=== PATIENT | male | born 1960 | race African-American/Black ===

== ENCOUNTER 2017-03-03 08:50 | Inpatient (IN) ==
--- NOTE | 2017-03-03 09:43 | EKG Report ---
Stationary ECG Study [facility] ER Test Date: 03/03/2017 9:03:20 AM Pat Name: JESUSITA ROMANO Department: Room: Gender: M Boom Tender: : 1960 Requested by: Benito Newberry Order Number: [id number] Reading MD: CAROL BERG Intervals [place] Rate: 96 P: 74 AL: 149 QRS: 97 QRSD: 74 T: -52 QT: 378 QTc: 432 Interpretive Statements SINUS RHYTHM RIGHT AXIS DEVIATION ST DEVIATION AND MODERATE T-WAVE ABNORMALITY, CONSIDER INFEROLATERAL ISCHEMIA Electronically Signed On 03-03-17 15:41:08 CDT by CAROL BERG [email or web address]
[2017-03-03] MEDS ORDERED: LORazepam 1 MG TABLET PO STA (10:00)
[2017-03-03] MEDS ORDERED: ALUM/MAG/SIMETH/LIDO VISC 1:1 30 ML BOTTLE PO STA (10:00)
[2017-03-03] MEDS ORDERED: MORPHINE 2 MG/1 ML SYRINGE IV STA (10:00)
[2017-03-03] MEDS ORDERED: NITROGLYCERIN 2% OINT 1 INCH/GM PACK TOP STA (10:00)
[2017-03-03] MEDS ORDERED: ONDANSETRON 4 MG/2 ML VIAL IV STA (10:00)
[2017-03-03] MEDS ORDERED: hydrALAZINE 20 MG/1 ML VIAL IV STA ×2 (10:00→11:07)
[2017-03-03] MEDS ORDERED: ASPIRIN 325 MG TABLET PO STA (10:00)
[2017-03-03 10:06] LABS: Basophils # 0.1 10*3/uL (0.0-0.2); Basophils % 0.5 % (0.0-0.8); Eosinophils % 0.3 % (0.00-10.9); Hematocrit 44.4 VOL% (42.0-52.0); Hemoglobin 15.6 GM/DL (14.0-18.0); Immature Granulocytes % 0.3 %; Immature Granulocytes Absolute 0.05 #; Lymphocytes # 2.8 10*3/uL (1.4-4.0); Mean Corpuscular HGB Conc 35.1 GM/DL (32-36); Mean Corpuscular Hemoglobin 32 PG (27-34); Mean Corpuscular Volume 91.2 FL (87-102); Mean Platelet Volume 11.3 FL (9.6-12.0); Monocytes # 1.5 10*3/uL (0.11-0.8); Monocytes % 10.3 % (1.7-12.7); Neutrophils # 10.2 10*3/uL (1.4-7.4); Neutrophils % 69.6 % (38.7-73.9); Platelet Count 298 T/CUMM (130-400); Red Blood Count 4.87 MC/CUMM (3.8-5.5); Red Cell Distribution Width 14.4 % (9.3-17.3); White Blood Count 14.6 T/CUMM (4-12)
[2017-03-03] MEDS ORDERED: NITROGLYCERIN 2% OINT 1 INCH/GM PACK TOP ONE (10:10)
[2017-03-03] MEDS ORDERED: ONDANSETRON 4 MG/2 ML VIAL ONE (10:11)
[2017-03-03] MEDS ORDERED: ASPIRIN 325 MG TABLET ONE (10:11)
[2017-03-03] MEDS ORDERED: MORPHINE 2 MG/1 ML SYRINGE ONE (10:11)
[2017-03-03] MEDS ORDERED: LORazepam 1 MG TABLET ONE (10:11)
[2017-03-03] MEDS ORDERED: hydrALAZINE 20 MG/1 ML VIAL ONE (10:11)
[2017-03-03] MEDS ORDERED: ALUM/MAG/SIMETH/LIDO VISC 1:1 30 ML BOTTLE PO ONE (10:11)
[2017-03-03 10:13] LABS: D-Dimer 1.9 MG/L FEU
[2017-03-03 10:37] LABS: Apearance,Urine Slightly Hazy (Clear); Bilirubin,Urine Negative (Negative); Blood, Urine Moderate mg/dL (Negative); Glucose,Urine (UA) Negative (Negative); Hyaline Casts,Urine 2 /LPF (0-3); Ketones,Urine 5 mg/dL (Negative); Mucus,Urine Occasional /LPF (Occasional); Nitrite,Urine Negative (Negative); Protein,Urine 100 MG/DL; RBC,Urine <1 /HPF (0-4); Urine Color Yellow (Yellow); Urine Specific Gravity 1.011 (1.001-1.035); Urine Urobilinogen < 2.0 EU/DL (0.2-1.0)
[2017-03-03 10:44] LABS: Barbiturates Screen,Urine Negative (Negative); Benzodiazepines Screen,Urine Negative (Negative); Cannabinoid Screen,Urine Negative (Negative); Opiate Screen,Urine Negative (Negative); Phencyclidine Screen,Urine Negative (Negative)
--- NOTE | 2017-03-03 10:52 | XRay Report ---
History: Chest pain Date: 03/03/2017 Study: Chest x-ray AP portable Comparison exam: February 27, 2016 The cardiomediastinal silhouette and pulmonary vasculature are unremarkable. The lungs and pleural spaces are clear. The osseous structures are unremarkable. Impression: No acute cardiopulmonary process. No significant interval change PROCEDURE INTERPRETED AT [facility] DEPARTMENT OF RADIOLOGY Final Report Signed by: Dr. Ingris Houston
--- NOTE | 2017-03-03 11:00 | Emergency Department Note ---
Cele Mina Rolonda, am scribing for, and in the presence of, Benito Campbell MD 10:19. Adrian Mina Charles R, MD, personally performed the services described in this documentation, ascribed by Alverto Oakley in my presence, and it is both accurate and complete . Arrival - Arrival Chief Complaint: Chest Pain Stated Complaint: chest pain ED Nursing Triage Note: Brought in per EMS from home with c/o mid-sternal chest pain radiating into back onset this am. Describes as sharp. +shortness of breath. +nausea. History of Schizophrenia, has been sitting in car all night, clothing wet from rain. Mode of Arrival: Stretcher Limitations: No Limitations Source: Patient, Old Records Reviewed, RN Notes Reviewed - History of Present Illness HPI Narrative: Pt is a 56 y/o male who was brought to the ED via EMS for further evaluation of chest pain with an onset of this morning. Pt has a PMHx of HTN, Asthma, COPD, and Schizophrenia. Pt confirmed that he has a house but slept in his car last night because" they were trying to kill him." He states that he does hear voices but does not have any SI. Pt has a SHx of smoking. He denies fever but confirms SOB. No other pain/compliant in ED. Onset (ago): hour(s) Consistency: constant Severity: moderate Severity scale (1-10): 4 Allergies/Adverse Reactions: Allergies Allergy/AdvReac Type Severity Reaction Status Date / Time haloperidol [From Haldol] AdvReac Cramping Verified 03/03/17 09:07 of the Muscles Penicillins AdvReac Seizure Verified 03/03/17 09:07 Home Medications: Home Medications Medication Instructions Recorded Confirmed Type Albuterol Inhaler [Proventil 2 puff INH Q4H PRN #1 inhaler 01/15/16 Rx Inhaler] Atorvastatin [Lipitor] 40 mg PO BEDTIME #30 tablet 01/15/16 Rx Losartan [Cozaar] 50 mg PO DAILY #30 tablet 01/15/16 Rx NIFEdipine [Nifedipine ER] 60 mg PO DAILY #30 tab.er.24 01/15/16 Rx Phenytoin ER Cap [Dilantin Cap] 100 mg PO TID #100 capsule 01/15/16 Rx Quetiapine Fumarate 300 mg PO BID 01/15/16 01/15/16 History Aspirin Tab 325 mg PO DAILY #0 tablet 03/01/16 Rx Review of System - Review of System Constitutional: Absent: chills, fever Head/Ears/Nose/Throat: Absent: earache Respiratory: Present: respiratory distress (SOB). Absent: cough Cardiovascular: Present: chest pain Gastrointestinal: Absent: abdominal pain, nausea, vomiting, diarrhea Musculoskeletal: Absent: arm pain, back pain, neck pain Neurological: Absent: headache Psychiatric: Present: auditory hallucinations ("hears voices"). Absent: suicidal thoughts Medical,Surgical,& Family Hx - Medical History Cardio: History of: Hypertension Psychological: History of: Bipolar Disorder, Depression, Schizophrenia Neurology: History of: Seizures Respiratory: History of: Asthma, COPD - Family History Family History: Reports;: Family Diabetes, Family Heart Disease, Family Hypertension - Social History Smoking Status: Smoker, status unknown Frequency of Alcohol Use: Unknown Type of Drug Use: Unknown Exam Vital Signs: Vital Signs Temperature 98.5 F 03/03/17 08:50 Pulse Rate 121 H 03/03/17 11:30 Respiratory Rate 18 03/03/17 11:30 Blood Pressure 132/92 03/03/17 11:30 O2 Sat by Pulse Oximetry 98 03/03/17 11:30 - General General appearance: alert, in no apparent distress - Head Head exam: Present: atraumatic, normocephalic - Eye Eye exam: Present: PERRL, EOMI, other (wide stare) - ENT ENT exam: Present: mucous membranes moist. Absent: mucous membranes dry - Neck Neck exam: Present: full ROM. Absent: tenderness - Chest Chest inspection: Present: symmetric chest wall rise. Absent: tenderness - Respiratory Respiratory exam: Present: normal lung sounds bilaterally. Absent: wheezes - Cardiovascular Cardiovascular exam: Present: normal rhythm, tachycardia - Abdominal Exam Abdominal exam: Present: soft, normal bowel sounds. Absent: tenderness - Extremities Exam Extremities exam: Present: full ROM. Absent: tenderness - Back Exam Back exam: Present: full ROM. Absent: tenderness - Neurological Exam Neurological exam: Present: alert, oriented X3, CN II-XII intact - Psychiatric Psychiatric exam: Present: normal affect, normal mood - Skin Skin exam: Present: warm, dry, intact, normal color. Absent: rash Course - Consultations Consultation #1: Hospitalist will admit patient Time: 12:28 Results - Labs CBC & BMP: 03/03/17 09:16 03/03/17 10:23 Lab Results: I have reviewed the patients labs Labs: Laboratory Tests 03/03/17 03/03/17 03/03/17 09:16 09:16 10:23 INR 1.0 PT Patient/Control Mix 11.0 D-Dimer, Quantitative 1.9 B-Natriuretic Peptide 59 Urine pH 5.0 Ur Specific [place] 1.011 Urine Protein 100 Urine Glucose (UA) Negative Urine Ketones 5 Urine Blood Moderate Urine Nitrate Negative Urine Bilirubin Negative Urine Urobilinogen < 2.0 H Urine Leukocytes Negative Urine RBC <1 Hyaline Casts 2 Urine Mucus Occasional Ur Culture Indicated? Not indicated Urine Opiates Screen Ur Barbiturates Screen Ur Phencyclidine Scrn U Amphetamine/Methamph U Benzodiazepines Scrn U Cocaine Metab Screen U Cannabinoids Screen 03/03/17 10:23 INR PT Patient/Control Mix D-Dimer, Quantitative B-Natriuretic Peptide Urine pH Ur Specific [place] Urine Protein Urine Glucose (UA) Urine Ketones Urine Blood Urine Nitrate Urine Bilirubin Urine Urobilinogen Urine Leukocytes Urine RBC Hyaline Casts Urine Mucus Ur Culture Indicated? Urine Opiates Screen Negative Ur Barbiturates Screen Negative Ur Phencyclidine Scrn Negative U Amphetamine/Methamph Negative U Benzodiazepines Scrn Negative U Cocaine Metab Screen Negative U Cannabinoids Screen Negative - Diagnostic Findings Procedure: Chest x-ray: report reviewed by me (No acute cardiopulmonary process. No significant intercal change.), CT: report reviewed by me, image reviewed by me (No evidence of pulmonary embolus) Critical Care Time Critical Care Time: Yes Total Critical Care Time: 60 Disposition Clinical Impression: Chest pain, Schizophrenia, Hypertensive urgency, Elevated troponin, Renal insufficiency Case discussed with: patient, patient's family Disposition: Still a Patient Condition: Guarded Time of Disposition: 12:28
[2017-03-03 11:20] LABS: Albumin 4.4 G/DL (3.4-5.0); Bilirubin,Total 0.7 MG/DL (0.2-1.0); Calcium 10.2 MG/DL (8.5-10.1); Magnesium 2.4 MG/DL (1.8-2.4); Osmolality,Calculated 274.7 MOS/KG (273-304); Potassium 3.2 MMOL/L (3.5-5.1); Total Protein 8.3 G/DL (6.4-8.3)
[2017-03-03 11:22] LABS: Troponin I Only 0.456 NG/ML (0.00-0.045)
--- NOTE | 2017-03-03 11:54 | CT Report ---
Exam: CT chest PE study Date: 03/03/2017 11:01 AM Indication: Chest pain shortness of breath elevated d-dimer Comparison: Routine chest Technical: Images were obtained from the thoracic inlet through the lung bases with 80 cc of Omnipaque 350 with axial and coronal imaging available for review. Dose reduction was performed with decreasing kv and mA and automated exposure. 3-D MIP images were obtained Total DLP 310.3 Findings: The thyroid gland trachea are unremarkable. Esophagus is intact.. The pulmonary outflow tract, left and right proximal pulmonary arteries, first-order, second-order and third order branches reveal no evidence of pulmonary thromboemboli. The lungs are clear without infiltrates or demonstrated with granuloma change in the right lung base. No obvious infiltrates or effusions present.. The mediastinum structures are intact. Bony structures reveal degenerative spondylosis change present. Liver hepatic and portal veins are unremarkable. The spleen is intact. The stomach is incompletely distended. The adrenal glands are unremarkable. The proximal kidneys are only faintly seen. Impression: 1. No evidence of pulmonary thromboemboli. PROCEDURE INTERPRETED AT [facility] DEPARTMENT OF RADIOLOGY Final Report Signed by: Dr. David Childs
[2017-03-03] MEDS ORDERED: ENOXAPARIN 100 MG/ML SYRINGE SUBCUT STA (12:26)
[2017-03-03] MEDS ORDERED: ACETAMINOPHEN 325 MG TABLET PO PRN (12:30)
[2017-03-03] MEDS ORDERED: ZALEPLON 5 MG CAPSULE PO PRN (12:30)
[2017-03-03] MEDS ORDERED: MAGNESIUM SULF RIDER 2 GM in PREMIX 1 EACH IV PRN (12:30)
[2017-03-03] MEDS ORDERED: BISACODYL 5 MG TABLET PO PRN (12:30)
[2017-03-03] MEDS ORDERED: ONDANSETRON 4 MG/2 ML VIAL IV PRN (12:30)
[2017-03-03] MEDS ORDERED: POTASSIUM CHLORIDE 20 MEQ TABLET PO PRN ×2 (12:30)
[2017-03-03] MEDS ORDERED: MAGNESIUM SULF RIDER 4 GM in PREMIX 1 EACH IV PRN (12:30)
[2017-03-03] MEDS ORDERED: NITROGLYCERIN SL 0.4 MG TABLET SL PRN (12:30)
[2017-03-03] MEDS ORDERED: MAGNESIUM HYDROXIDE SUSP 30 ML UDCUP PO PRN (12:30)
[2017-03-03] MEDS ORDERED: ENOXAPARIN 120 MG/0.8 ML SYRINGE SUBCUT ONE (12:42)
[2017-03-03 12:52] LABS: Risk Ratio 3.22; VLDL CHOLESTEROL 19.8 MG/DL
--- NOTE | 2017-03-03 13:00 | Hospitalist History & Physical ---
Assessment and Plan (1) Chest pain Status: Acute Assessment and plan: Initial cardiac enzymes were elevated at 0.456. We will conduct a full cardiac workup, serial cardiac enzymes, and carotid Doppler. In addition the patient was grossly hypertensive at the time of ED presentation, we will resume home medications as previously ordered. Current Visit: Yes (2) Elevated troponin Status: Acute Assessment and plan: Troponin was grossly elevated at the time of ED presentation noted at 0.456. Will obtain serial cardiac enzymes and consult cardiology for further review. Current Visit: Yes (3) Seizure disorder Status: Chronic Assessment and plan: Patient seizure disorder is generally managed with Dilantin, however the patient is not able to recall the last dose taken. We will obtain a stat Dilantin level and adjust accordingly. Current Visit: No (4) Schizophrenia Status: Acute Assessment and plan: The patient was evaluated by [facility] in the ED. Due to the increase in his troponin level and blood pressure, he was deemed inappropriate for inpatient admission at this time. Case management was involved during this process. Will reconsult case management to reach consult [facility] when patient's condition is more stable. Current Visit: Yes History of Present Illness Chief complaint: Chest pain History of present illness: This is a very pleasant 56-year-old male that presented to the ED at [facility] this afternoon via EMS for the evaluation of chest pain. Patient has a medical history significant for: Hypertension, nicotine addiction, asthma, chronic obstructive pulmonary disease, and schizophrenia. Surgical history is unknown at the time of encounter. The patient reports the onset of symptoms "7 years ago". Apparently, the patient was found sitting in his car with it. He reported that he does have a house however he slept in his car last night because "they were trying to kill him". The patient reports current auditory hallucinations however does not have any suicidal ideation at the time of encounter. At the time of ED encounter, the patient was noted to be grossly hypertensive with a blood pressure noted at 194/131. In addition, the patient verbalize complaints of shortness of breath and chest pain. Nitroglycerin ointment was applied and hydralazine was given intravenously. The patient's blood pressure gradually responded and is now noted at 132/92. Labs were obtained; complete blood count reported his white blood cell count of 14.6, hemoglobin 15.6, hematocrit 44.4, and platelet count of 298. Coagulation panel reported INR at 1.0, PT at 11, and d-dimer 1.9. Complete metabolic profile reported his sodium at 138, potassium 3.2, chloride 98,, dioxide 31, BUN 12, creatinine 1.4, calcium 10.2, magnesium 2.4, alkaline phosphatase at 120. Cardiac enzymes reported a troponin of 0.456 and BNP at 59. Urinalysis was essentially unremarkable. Urine toxicology was essentially negative also. CT chest reported no evidence of pulmonary thromboemboli. Chest x-ray was negative for the presence of any acute cardiopulmonary processes. After brief discussion with Dr. Campbell and Dr. Madsen, the patient will be admitted to the hospitalist services for continuation of care. Home medications have been reviewed. CODE STATUS discussed; patient is a FULL CODE. Home Medications Medication Instructions Recorded Confirmed Type Albuterol Inhaler [Proventil 2 puff INH Q4H PRN #1 inhaler 01/15/16 Rx Inhaler] Atorvastatin [Lipitor] 40 mg PO BEDTIME #30 tablet 01/15/16 Rx Losartan [Cozaar] 50 mg PO DAILY #30 tablet 01/15/16 Rx NIFEdipine [Nifedipine ER] 60 mg PO DAILY #30 tab.er.24 01/15/16 Rx Phenytoin ER Cap [Dilantin Cap] 100 mg PO TID #100 capsule 01/15/16 Rx Quetiapine Fumarate 300 mg PO BID 01/15/16 01/15/16 History Aspirin Tab 325 mg PO DAILY #0 tablet 03/01/16 Rx Allergies Allergy/AdvReac Type Severity Reaction Status Date / Time haloperidol [From Haldol] AdvReac Cramping Verified 03/03/17 09:07 of the Muscles Penicillins AdvReac Seizure Verified 03/03/17 09:07 Medical,Surgical,& Family Hx - Medical History Cardio: History of: Hypertension Psychological: History of: Bipolar Disorder, Depression, Schizophrenia Neurology: History of: Seizures Respiratory: History of: Asthma, COPD - Family History Family History: Reports;: Family Diabetes, Family Heart Disease, Family Hypertension - Social History Smoking Status: Smoker, status unknown Frequency of Alcohol Use: Unknown Type of Drug Use: Unknown ROS unobtainable: due to mental status Exam - Constitutional Vitals: Period Temp Pulse Resp BP Sys/Celaya Pulse Ox Last 24 Hr 98.5 F-98.5 F 93-121 18-22 132-212/92-131 96-100 General appearance: normal weight, no acute distress - Head Head exam: Present: normal inspection, normocephalic, atraumatic - Eye Eye exam: Present: EOMI. Absent: conjunctival injection Pupils: Present: DAYNA, normal accommodation - ENT ENT exam: Present: normal exam, normal external ear exam, normal oropharynx - Neck Neck exam: Present: normal inspection. Absent: lymphadenopathy, meningismus, tenderness, thyromegaly - Respiratory Respiratory exam: Present: wheezes. Absent: accessory muscle use, chest wall tenderness, decreased breath sounds, prolonged expiratory phase - Cardiovascular Cardiovascular exam: Present: tachycardia. Absent: carotid bruit, diastolic murmur, gallop, JVD, rubs - GI/Abdominal GI/Abdominal exam: Present: normal bowel sounds, soft - Extremities Exam Extremities exam: Present: normal inspection, full ROM, edema - Back Exam Back exam: Present: normal inspection - Neurological Exam Neurological exam: Present: alert, altered - Psychiatric Psychiatric exam: Present: flat affect - Skin Skin exam: Present: normal color, warm, dry Results - Labs CBC & BMP: 03/03/17 09:16 03/03/17 10:23 Lab Results: I have reviewed the past 24 hour labs
[2017-03-03] MEDS ORDERED: POTASSIUM CHLORIDE 20 MEQ TABLET PO ONE (13:44)
--- NOTE | 2017-03-03 14:52 | EKG Report ---
Stationary ECG Study [facility] ER Test Date: 03/03/2017 1:10:09 PM Pat Name: JESUSITA ROMANO Department: Room: 286 Gender: M Automat Watcher: : 1960 Requested by: Benito Newberry Order Number: [id number] Reading MD: CAROL BERG Intervals [place] Rate: 125 P: 146 PA: 134 QRS: 139 QRSD: 78 T: -30 QT: 317 QTc: 391 Interpretive Statements ECTOPIC ATRIAL TACHYCARDIA LEFT POSTERIOR FASCICULAR BLOCK NONSPECIFIC T-WAVE ABNORMALITY Electronically Signed On 03-03-17 15:47:04 CDT by CAROL BERG [email or web address]
--- NOTE | 2017-03-03 15:08 | ECHO Report ---
Neeta Lezama Exam Date: 03/03/2017 12:48 Referring Physician: Technologist: Conchis Barry Age: 56 Ht (in): 71 Wt (lb): 235 Gender: M Exam Location: [facility] Echo Indications: sinus tachycardia, chest pain, sob, HTN, asthma, COPD BP: 145 / 95 HR: 54 Rhythm: Sinus tachycardia Technical Quality: IMPRESSIONS Hyperdynamic Left ventricle. EF 65-70 %. Grade I/IV diastolic dysfunction (abnormal relaxation filling pattern), normal to mildly elevated filling pressures. Normal right ventricle size. Normal right atrial size. Normal left atrial size. Mildly thickened mitral valve. Trace mitral valve regurgitation. Aortic valve sclerosis. No aortic valve regurgitation. Morphologically normal tricuspid valve. Mild tricuspid valve regurgitation. PAP40 mmHG. Pulmonic valve not well visualized. No pericardial effusion. Normal size aortic root and proximal ascending aorta. LVOT gradient 36 mmHg due hyperdynamic ventricle. MEASUREMENTS (Male / Female) Normal Values 2D ECHO LV Diastolic Diameter PLAX 2.7 cm 4.2 - 5.9 / 3.9 - 5.3 cm LV Systolic Diameter PLAX 1.3 cm LV Fractional Shortening PLAX 50.4 % IVS Diastolic Thickness 1.7 cm 0.6 - 1.0 / 0.6 - 0.9 cm LVPW Diastolic Thickness 1.4 cm 0.6 - 1.0 / 0.6 - 0.9 cm RV Internal Dim ED PLAX 2.4 cm Aortic Root Diameter 2.6 cm LA Systolic Diameter LX 3.5 cm 3.0 - 4.0 / 2.7 - 3.8 cm DOPPLER TR Peak Velocity 299.0 cm/s TR Peak Gradient 35.8 mmHg FINDINGS Left Ventricle Hyperdynamic Left ventricle. EF 65-70 %. Grade I/IV diastolic dysfunction (abnormal relaxation filling pattern), normal to mildly elevated filling pressures. Right Ventricle Normal right ventricular size. Right Atrium Normal right atrial size. Left Atrium Normal left atrial size. Mitral Valve Mildly thickened mitral valve. Trace mitral valve regurgitation. Aortic Valve Aortic valve sclerosis. No aortic valve regurgitation. Tricuspid Valve Morphologically normal tricuspid valve. Mild tricuspid valve regurgitation.PAP40 mmHG. Pulmonic Valve Pulmonic valve not well visualized. Pericardium No pericardial effusion. Aorta Normal size aortic root and proximal ascending aorta. Santana Cass (Electronically Signed) Final Date: 03 March 2017 15:07
[2017-03-03] MEDS ORDERED: ALBUTEROL/IPRATROPIUM 3 ML NEB RESP TX PRN (15:12)
[2017-03-03] MEDS: SODIUM CHLORIDE 0.45% 1,000 ML IV SCH (15:17)
[2017-03-03] MEDS: PHENYTOIN ER 100 MG CAPSULE PO SCH ×2 (15:17→21:02)
--- NOTE | 2017-03-03 15:19 | Cardiology Consult Note ---
<Leilani Kohler E - Last Filed: 03/03/17 14:47> Assessment and Plan - Time spent with patient Time spent with patient: Greater than 30 minutes (due to assessment, plan, and documentation) (1) Chest pain Status: Acute Assessment and plan: See plan of care listed below. Current Visit: Yes (2) Hypertension Status: Chronic Assessment and plan: See plan of care listed below. Current Visit: No Qualifiers: Hypertension type: essential hypertension Qualified Code(s): I10 - Essential (primary) hypertension (3) COPD (chronic obstructive pulmonary disease) Status: Chronic Assessment and plan: See plan of care listed below. Current Visit: Yes (4) Seizure disorder Status: Chronic Assessment and plan: See plan of care listed below. Current Visit: No (5) Schizophrenia Status: Chronic Assessment and plan: See plan of care listed below. Current Visit: Yes (6) Asthma Status: Chronic Assessment and plan: See plan of care listed below. Current Visit: No (7) Nicotine addiction Status: Chronic Assessment and plan: See plan of care listed below. Current Visit: Yes History of Present Illness - Data of Consult Patient: new to practice Consult date: 03/03/17 Requesting Physician: Maurice Huston - Consult Narrative Reason for consult: chest pain History of present illness: Job Site Superintendent: ramakrishna Odell PCP: unable to obtain Due to the patient's mental status, obtaining a history is difficult. Much of the history is obtained from the record. Mr. Lezama is a 56 year old male with a past medical history of hypertension, nicotine addiction, asthma, chronic obstructive pulmonary disease, seizure disorder, and schizophrenia. Unable to obtain complete review of systems as the patient replied "yes" to every symptom asked. He reportedly lives alone and there is currently no family present. Mr. Lezama presented to the emergency department today for further evaluation of chest pain. Apparently, he was found sitting outside in his car and reports an onset of the symptoms "7 years ago." He reportedly has a home but slept in his car last night because "they were trying to kill him." He is currently having auditory hallucinations but denies suicidal ideation. At the time of my exam, he tells me the voices are telling him "stop the violence." From what I'm able to ascertain, the patient is/has been having midsternal chest pain and shortness of breath. On admission, he does have a slight bump in his troponin of up to 0.456 in the setting of a mildly elevated creatinine of 1.4. EKG does show sinus rhythm with T-wave abnormality inferolaterally. Echocardiogram is pending. Potassium is 3.2 on admission. Magnesium 2.4. Lipid panel reveals triglycerides 99, cholesterol 174, LDL 106, and HDL 54. BNP is 59. Urine drug screen is negative. Dilantin level is 2.9. Assessment/Plan: 1. Chest pain - Difficult to determine whether this is typical or atypical. We will follow his serial EKGs and cardiac biomarkers. Unsure of his functional status. He may require further evaluation with stress testing or left heart catheterization; however, given his mental state, he would not be the best candidate for PCI since it would require him to be compliant with DAPT. 2. Hypertension - Suspect uncontrolled. His home medications have been resumed. We will continue to monitor and adjust accordingly. 3. COPD - O2 PRN. Breathing treatments PRN. 4. Seizure disorder - Dilantin has been resumed. Unsure of any recent seizure activity. 5. Schizophrenia - Psych medications have been resumed. 6. Asthma - Continue O2 PRN. 7. Nicotine addiction - Spent greater than 5 minutes discussing the need for total tobacco cessation. Unsure how much patient smokes or for how long. Will need re-education. CC: Patti Madsen MD - Home Medications and Allergies Home Medications: Home Medications Medication Instructions Recorded Confirmed Type Unable To Obtain [Unable to Obtain] 03/03/17 03/03/17 History Allergies/Adverse Reactions: Allergies Allergy/AdvReac Type Severity Reaction Status Date / Time haloperidol [From Haldol] AdvReac Cramping Verified 03/03/17 09:07 of the Muscles Penicillins AdvReac Seizure Verified 03/03/17 09:07 ROS unobtainable: due to mental status Medical,Surgical,& Family Hx - Medical History Cardio: History of: Hypertension Psychological: History of: Bipolar Disorder, Depression, Schizophrenia Neurology: History of: Seizures Respiratory: History of: Asthma, COPD - Family History Family History: Reports;: Family Diabetes, Family Heart Disease, Family Hypertension - Social History Smoking Status: Current every day smoker Frequency of Alcohol Use: Frequently (amount unknown) Type of Drug Use: Unknown Marital Status: Single Lives With:: Alone Functional capacity: independent ambulation Physical Examination Vital Signs Temp Pulse Resp BP Pulse Ox 98.5 F 102 H 22 175/116 100 03/03/17 08:50 03/03/17 08:50 03/03/17 08:50 03/03/17 08:50 03/03/17 08:50 Exam: General appearance: Overweight, no acute distress. - Head Head exam: Present: normal inspection, normocephalic, atraumatic. Absent: hematoma, laceration - Eye Eye exam: Present: EOMI. Absent: nystagmus, periorbital swelling, laceration to eyelids Pupils: Present: PERRL. Absent: constricted, dilated, fixed, irregular, unequal - ENT ENT exam: Present: normal exam, normal external ear exam - Neck Neck exam: Present: normal inspection. Absent: lymphadenopathy, meningismus, tenderness, thyromegaly - Respiratory Respiratory exam: Present: clear to auscultation bilaterally. Absent: accessory muscle use, chest wall tenderness - Cardiovascular Cardiovascular exam: Present: regular rate and rhythm, tachycardia. Absent: carotid bruit, JVD, rubs - GI/Abdominal GI/Abdominal exam: Present: normal bowel sounds, soft. Absent: distended, firm , guarding, hernia, mass, tenderness, rebound. - Extremities Exam Extremities exam: Present: normal inspection, normal capillary refill. Upper extremity pulses 2+. Lower extremity pulses 2+. Absent: calf tenderness, edema -Musculoskeletal Exam Musculoskeletal: Present: No Fluid Collection, No Pain, Normal Range of Motion - Back Exam Back exam: Present: normal inspection. Absent: muscle spasm, vertebral tenderness - Neurological Exam Neurological exam: Present: alert, confused, grossly intact without resting or essential tremor - Psychiatric Psychiatric exam: Present: flat affect - Skin Skin exam: Present: normal color, warm, dry, intact. Absent: cyanosis, diaphoretic, rash, urticaria Result/EKG - Labs CBC & BMP: 03/03/17 09:16 03/03/17 10:23 Lab Results: I have reviewed the past 24 hour labs Labs: Laboratory Results - last 24 hr 03/03/17 03/03/17 03/03/17 09:16 09:16 09:16 WBC 14.6 H RBC 4.87 Hgb 15.6 Hct 44.4 MCV 91.2 MCH 32 MCHC 35.1 RDW 14.4 Plt Count 298 MPV 11.3 Neut % (Auto) 69.6 Lymph % (Auto) 19.0 L [place] % (Auto) 10.3 Eos % (Auto) 0.3 Baso % (Auto) 0.5 Neut # (Auto) 10.2 H Lymph # (Auto) 2.8 [place] # (Auto) 1.5 H Eos # (Auto) 0.0 Baso # (Auto) 0.1 Immature Gran % 0.3 Nucleated RBC % 0.0 Immature Gran # 0.05 Nucleated RBCs # 0.00 INR 1.0 PT Patient/Control Mix 11.0 D-Dimer, Quantitative 1.9 Sodium Potassium Chloride Carbon Dioxide Anion Gap BUN Creatinine GFR Calculation BUN/Creatinine Ratio Glucose Calculated Osmolality Calcium Magnesium Total Bilirubin AST ALT Alkaline Phosphatase Troponin I B-Natriuretic Peptide 59 Total Protein Albumin Globulin Albumin/Globulin Ratio Triglycerides Cholesterol LDL Cholesterol VLDL Cholesterol HDL Cholesterol Heart Disease Risk Ratio Lipase Urine Color Urine Appearance Urine pH Ur Specific [place] Urine Protein Urine Glucose (UA) Urine Ketones Urine Blood Urine Nitrate Urine Bilirubin Urine Urobilinogen Urine Leukocytes Urine RBC Hyaline Casts Urine Mucus Ur Culture Indicated? Urine Opiates Screen Ur Barbiturates Screen Phenytoin Ur Phencyclidine Scrn U Amphetamine/Methamph U Benzodiazepines Scrn U Cocaine Metab Screen U Cannabinoids Screen 03/03/17 03/03/17 03/03/17 10:23 10:23 10:23 WBC RBC Hgb Hct MCV MCH MCHC RDW Plt Count MPV Neut % (Auto) Lymph % (Auto) [place] % (Auto) Eos % (Auto) Baso % (Auto) Neut # (Auto) Lymph # (Auto) [place] # (Auto) Eos # (Auto) Baso # (Auto) Immature Gran % Nucleated RBC % Immature Gran # Nucleated RBCs # INR PT Patient/Control Mix D-Dimer, Quantitative Sodium 138 Potassium 3.2 L Chloride 98 Carbon Dioxide 31 Anion Gap 12.2 BUN 12 Creatinine 1.40 H GFR Calculation 86 BUN/Creatinine Ratio 8.00 Glucose 105 Calculated Osmolality 274.7 Calcium 10.2 H Magnesium 2.4 Total Bilirubin 0.70 AST 34 ALT 26 Alkaline Phosphatase 120 H Troponin I 0.456 H B-Natriuretic Peptide Total Protein 8.3 Albumin 4.4 Globulin 3.9 H Albumin/Globulin Ratio 1.1 Triglycerides Cholesterol LDL Cholesterol VLDL Cholesterol HDL Cholesterol Heart Disease Risk Ratio Lipase 112.0 Urine Color Yellow Urine Appearance Slightly hazy Urine pH 5.0 Ur Specific [place] 1.011 Urine Protein 100 Urine Glucose (UA) Negative Urine Ketones 5 Urine Blood Moderate Urine Nitrate Negative Urine Bilirubin Negative Urine Urobilinogen < 2.0 H Urine Leukocytes Negative Urine RBC <1 Hyaline Casts 2 Urine Mucus Occasional Ur Culture Indicated? Not indicated Urine Opiates Screen Negative Ur Barbiturates Screen Negative Phenytoin Ur Phencyclidine Scrn Negative U Amphetamine/Methamph Negative U Benzodiazepines Scrn Negative U Cocaine Metab Screen Negative U Cannabinoids Screen Negative 03/03/17 03/03/17 10:23 10:23 WBC RBC Hgb Hct MCV MCH MCHC RDW Plt Count MPV Neut % (Auto) Lymph % (Auto) [place] % (Auto) Eos % (Auto) Baso % (Auto) Neut # (Auto) Lymph # (Auto) [place] # (Auto) Eos # (Auto) Baso # (Auto) Immature Gran % Nucleated RBC % Immature Gran # Nucleated RBCs # INR PT Patient/Control Mix D-Dimer, Quantitative Sodium Potassium Chloride Carbon Dioxide Anion Gap BUN Creatinine GFR Calculation BUN/Creatinine Ratio Glucose Calculated Osmolality Calcium Magnesium Total Bilirubin AST ALT Alkaline Phosphatase Troponin I B-Natriuretic Peptide Total Protein Albumin Globulin Albumin/Globulin Ratio Triglycerides 99 Cholesterol 174 LDL Cholesterol 106.0 VLDL Cholesterol 19.8 HDL Cholesterol 54 Heart Disease Risk Ratio 3.22 Lipase Urine Color Urine Appearance Urine pH Ur Specific [place] Urine Protein Urine Glucose (UA) Urine Ketones Urine Blood Urine Nitrate Urine Bilirubin Urine Urobilinogen Urine Leukocytes Urine RBC Hyaline Casts Urine Mucus Ur Culture Indicated? Urine Opiates Screen Ur Barbiturates Screen Phenytoin 2.9 L Ur Phencyclidine Scrn U Amphetamine/Methamph U Benzodiazepines Scrn U Cocaine Metab Screen U Cannabinoids Screen - EKG EKG results: interpreted by me, sinus rhythm (with T-wave abormality inferolaterally) <Mikey Odell - Last Filed: 03/03/17 16:53> History of Present Illness - Consult Narrative History of present illness: Cardiology addendum Patient seen and chart examined ,discussed with nurse Leilani Kohler NP. This patient has schizophrenia. I am not sure that his history is reliable. Patient states he is out on the streets again. He admits to being noncompliant with his medication. Urine drug screen was negative. He does smoke at least one pack of cigarettes daily. CT the chest was negative for pulmonary embolus and dissection. EKG shows sinus rhythm with right axis deviation and inferolateral T-wave inversions. Patient admitted with hypertensive urgency blood pressure 212/126 with abnormal EKG and trivial troponin Also has seizure disorder on Dilantin Plan Restart BP meds Echo Doppler Lexiscan cardiac stress test in a.m. No family is present at this time CC: Patti Madsen MD Physical Examination Vital Signs Temp Pulse Resp BP Pulse Ox 98.5 F 102 H 22 175/116 100 03/03/17 08:50 03/03/17 08:50 03/03/17 08:50 03/03/17 08:50 03/03/17 08:50 Result/EKG - Labs CBC & BMP: 03/03/17 09:16 03/03/17 10:23 Labs: Laboratory Results - last 24 hr 03/03/17 03/03/17 03/03/17 09:16 09:16 09:16 WBC 14.6 H RBC 4.87 Hgb 15.6 Hct 44.4 MCV 91.2 MCH 32 MCHC 35.1 RDW 14.4 Plt Count 298 MPV 11.3 Neut % (Auto) 69.6 Lymph % (Auto) 19.0 L [place] % (Auto) 10.3 Eos % (Auto) 0.3 Baso % (Auto) 0.5 Neut # (Auto) 10.2 H Lymph # (Auto) 2.8 [place] # (Auto) 1.5 H Eos # (Auto) 0.0 Baso # (Auto) 0.1 Immature Gran % 0.3 Nucleated RBC % 0.0 Immature Gran # 0.05 Nucleated RBCs # 0.00 INR 1.0 PT Patient/Control Mix 11.0 D-Dimer, Quantitative 1.9 Sodium Potassium Chloride Carbon Dioxide Anion Gap BUN Creatinine GFR Calculation BUN/Creatinine Ratio Glucose Calculated Osmolality Calcium Magnesium Total Bilirubin AST ALT Alkaline Phosphatase Total Creatine Kinase CK-MB (CK-2) CK and CKMB Interp Troponin I B-Natriuretic Peptide 59 Total Protein Albumin Globulin Albumin/Globulin Ratio Triglycerides Cholesterol LDL Cholesterol VLDL Cholesterol HDL Cholesterol Heart Disease Risk Ratio Lipase Urine Color Urine Appearance Urine pH Ur Specific [place] Urine Protein Urine Glucose (UA) Urine Ketones Urine Blood Urine Nitrate Urine Bilirubin Urine Urobilinogen Urine Leukocytes Urine RBC Hyaline Casts Urine Mucus Ur Culture Indicated? Urine Opiates Screen Ur Barbiturates Screen Phenytoin Ur Phencyclidine Scrn U Amphetamine/Methamph U Benzodiazepines Scrn U Cocaine Metab Screen U Cannabinoids Screen 03/03/17 03/03/17 03/03/17 10:23 10:23 10:23 WBC RBC Hgb Hct MCV MCH MCHC RDW Plt Count MPV Neut % (Auto) Lymph % (Auto) [place] % (Auto) Eos % (Auto) Baso % (Auto) Neut # (Auto) Lymph # (Auto) [place] # (Auto) Eos # (Auto) Baso # (Auto) Immature Gran % Nucleated RBC % Immature Gran # Nucleated RBCs # INR PT Patient/Control Mix D-Dimer, Quantitative Sodium 138 Potassium 3.2 L Chloride 98 Carbon Dioxide 31 Anion Gap 12.2 BUN 12 Creatinine 1.40 H GFR Calculation 86 BUN/Creatinine Ratio 8.00 Glucose 105 Calculated Osmolality 274.7 Calcium 10.2 H Magnesium 2.4 Total Bilirubin 0.70 AST 34 ALT 26 Alkaline Phosphatase 120 H Total Creatine Kinase CK-MB (CK-2) CK and CKMB Interp Troponin I 0.456 H B-Natriuretic Peptide Total Protein 8.3 Albumin 4.4 Globulin 3.9 H Albumin/Globulin Ratio 1.1 Triglycerides Cholesterol LDL Cholesterol VLDL Cholesterol HDL Cholesterol Heart Disease Risk Ratio Lipase 112.0 Urine Color Yellow Urine Appearance Slightly hazy Urine pH 5.0 Ur Specific [place] 1.011 Urine Protein 100 Urine Glucose (UA) Negative Urine Ketones 5 Urine Blood Moderate Urine Nitrate Negative Urine Bilirubin Negative Urine Urobilinogen < 2.0 H Urine Leukocytes Negative Urine RBC <1 Hyaline Casts 2 Urine Mucus Occasional Ur Culture Indicated? Not indicated Urine Opiates Screen Negative Ur Barbiturates Screen Negative Phenytoin Ur Phencyclidine Scrn Negative U Amphetamine/Methamph Negative U Benzodiazepines Scrn Negative U Cocaine Metab Screen Negative U Cannabinoids Screen Negative 03/03/17 03/03/17 03/03/17 10:23 10:23 14:26 WBC RBC Hgb Hct MCV MCH MCHC RDW Plt Count MPV Neut % (Auto) Lymph % (Auto) [place] % (Auto) Eos % (Auto) Baso % (Auto) Neut # (Auto) Lymph # (Auto) [place] # (Auto) Eos # (Auto) Baso # (Auto) Immature Gran % Nucleated RBC % Immature Gran # Nucleated RBCs # INR PT Patient/Control Mix D-Dimer, Quantitative Sodium Potassium Chloride Carbon Dioxide Anion Gap BUN Creatinine GFR Calculation BUN/Creatinine Ratio Glucose Calculated Osmolality Calcium Magnesium Total Bilirubin AST ALT Alkaline Phosphatase Total Creatine Kinase 1065 H CK-MB (CK-2) 5.6 H CK and CKMB Interp 0.5 Troponin I 0.446 H B-Natriuretic Peptide Total Protein Albumin Globulin Albumin/Globulin Ratio Triglycerides 99 Cholesterol 174 LDL Cholesterol 106.0 VLDL Cholesterol 19.8 HDL Cholesterol 54 Heart Disease Risk Ratio 3.22 Lipase Urine Color Urine Appearance Urine pH Ur Specific [place] Urine Protein Urine Glucose (UA) Urine Ketones Urine Blood Urine Nitrate Urine Bilirubin Urine Urobilinogen Urine Leukocytes Urine RBC Hyaline Casts Urine Mucus Ur Culture Indicated? Urine Opiates Screen Ur Barbiturates Screen Phenytoin 2.9 L Ur Phencyclidine Scrn U Amphetamine/Methamph U Benzodiazepines Scrn U Cocaine Metab Screen U Cannabinoids Screen
[2017-03-03 15:20] LABS: CKMB % 0.5 %
[2017-03-03 15:21] LABS: Troponin I Only 0.446 NG/ML (0.00-0.045)
[2017-03-03] MEDS ORDERED: CARVEDILOL 6.25 MG TABLET PO SCH (21:00)
[2017-03-03] MEDS: ATORVASTATIN 40 MG TABLET PO SCH (21:02)
[2017-03-03] MEDS: QUEtiapine 100 MG TABLET PO SCH (21:02)
[2017-03-04 02:58] LABS: Basophils # 0.1 10*3/uL (0.0-0.2); Basophils % 0.6 % (0.0-0.8); Eosinophils # 0.2 10*3/uL (0.0-0.87); Eosinophils % 1.7 % (0.00-10.9); Hematocrit 41.1 VOL% (42.0-52.0); Hemoglobin 14.3 GM/DL (14.0-18.0); Immature Granulocytes % 0.2 %; Immature Granulocytes Absolute 0.03 #; Lymphocytes # 2.7 10*3/uL (1.4-4.0); Lymphocytes % 22.3 % (21.2-54.2); Mean Corpuscular HGB Conc 34.8 GM/DL (32-36); Mean Corpuscular Hemoglobin 32 PG (27-34); Mean Corpuscular Volume 92.4 FL (87-102); Mean Platelet Volume 10.6 FL (9.6-12.0); Monocytes % 8.4 % (1.7-12.7); Neutrophils # 8.1 10*3/uL (1.4-7.4); Neutrophils % 66.8 % (38.7-73.9); Platelet Count 225 T/CUMM (130-400); Red Blood Count 4.45 MC/CUMM (3.8-5.5); Red Cell Distribution Width 14.5 % (9.3-17.3); White Blood Count 12.1 T/CUMM (4-12)
[2017-03-04 03:27] LABS: Albumin 3.5 G/DL (3.4-5.0); Bilirubin,Total 0.5 MG/DL (0.2-1.0); Calcium 9.2 MG/DL (8.5-10.1); Magnesium 2.5 MG/DL (1.8-2.4); Osmolality,Calculated 274.8 MOS/KG (273-304); Potassium 3.4 MMOL/L (3.5-5.1); Total Protein 6.9 G/DL (6.4-8.3)
[2017-03-04 03:31] LABS: Troponin I Only 0.189 NG/ML (0.00-0.045)
[2017-03-04] MEDS: SODIUM CHLORIDE 0.45% 1,000 ML IV SCH ×2 (05:28→14:14)
--- NOTE | 2017-03-04 06:18 | EKG Report ---
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
--- NOTE | 2017-03-04 06:41 | Physician Query Form ---
CLICK EDIT DOCUMENT TO SELECT QUERY ANSWER --> OK --> SIGN Iris Palacios RN, CCDS Certified Clinical Residential Property Tax Appraiser W) [phone] (f) [phone] [email or web address] PROVIDERS: Make your selection(s) from the choices in EACH section by typing an "x" and enter comments in the comment section. Please use your independent medical judgment in providing your response. This request does not imply that any particular answer is desired or expected. CLINICAL INDICATORS: (Providers should not edit this section) The medical record indicates that the patient was admitted with chest pain, hypertension, 175/115, troponins of 0.456 that has dropped to 0.189 and the patient was treated with "Nitroglycerin ointment was applied and hydralazine was given intravenously". After necessary workup, could you please state the underlying cause of the patient's chest pain, if determined. CARDIAC ETIOLOGY: ( ) Angina associated with coronary artery disease ( ) Unstable Angina ( ) Demand ischemia without an acute NM ( ) Demand ischemia with a NSTEMI ( ) STEMI ( ) NSTEMI ( ) Cardiac Arrhythmia, please specify: ( ) Armond's Syndrome ( ) Other etiology, please specify: ( ) Clinically unable to determine NON-CARDIAC ETIOLOGY: ( ) GERD ( ) Chest pain due to Hypertension (x) Anterior chest wall pain ( ) Pleuritic pain ( ) Costochondritis ( ) Anxiety ( ) Musculoskeletal, please provide site: ( ) Troponin elevation due to non-cardiac cause, please specify: ( ) Other etiology, please specify: ( ) Clinically unable to determine COMMENTS: PLEASE ALSO DOCUMENT RESPONSE IN PROGRESS NOTES AND/OR DISCHARGE SUMMARY Use of terms such as suspected, likely, or probable (associated with a specific diagnosis that is being evaluated, monitored, or treated as if it exists) are acceptable and can be restated in the discharge summary if not ruled out. MTDD
[2017-03-04] MEDS ORDERED: ASPIRIN EC 325 MG TABLET PO SCH (09:00)
[2017-03-04] MEDS ORDERED: PANTOPRAZOLE 40 MG TABLET PO SCH (09:00)
[2017-03-04] MEDS ORDERED: LISINOPRIL 5 MG TABLET PO SCH (09:00)
--- NOTE | 2017-03-04 09:24 | Event Note ---
Patient underwent Lexiscan Cardiolite stress testing this morning due to gait instability. Dr. Odell present for Lexiscan. Maximum heart rate 123. Patient had no significant EKG changes during test. Patient had mild dyspnea and nausea but no vomiting. Denies chest pain, dizziness, lightheadedness, syncope. Patient now to nuclear medicine for final scan. Dr. Odell to read, interpret, and advise.
--- NOTE | 2017-03-04 09:29 | Cardiology Progress Note ---
<Leilani Kohler E - Last Filed: 03/04/17 09:24> Assessment and Plan - Time spent with patient Time spent with patient: Less than 30 minutes (1) Chest pain Status: Acute Assessment and plan: See plan of care listed below. Current Visit: Yes (2) Hypertension Status: Chronic Assessment and plan: See plan of care listed below. Current Visit: No Qualifiers: Hypertension type: essential hypertension Qualified Code(s): I10 - Essential (primary) hypertension (3) COPD (chronic obstructive pulmonary disease) Status: Chronic Assessment and plan: See plan of care listed below. Current Visit: Yes (4) Seizure disorder Status: Chronic Assessment and plan: See plan of care listed below. Current Visit: No (5) Schizophrenia Status: Chronic Assessment and plan: See plan of care listed below. Current Visit: Yes (6) Asthma Status: Chronic Assessment and plan: See plan of care listed below. Current Visit: No (7) Nicotine addiction Status: Chronic Assessment and plan: See plan of care listed below. Current Visit: Yes Cardiology - PN: Subj Interval history: Surgery Teacher: new to Dr. Odell PCP: unable to obtain Mr. Lezama is a 56-year-old -[place] male who is admitted for further evaluation of chest pain. He has a history of hypertension, nicotine addiction , asthma, chronic obstructive pulmonary disease, seizure disorder, and schizophrenia. Due to the patient's mental status, is difficult to obtain much information. He has been having auditory hallucinations since admission but denies suicidal ideation. He did have slight bump in his troponin in the setting of a mildly elevated creatinine and hypertensive urgency with blood pressure 212/126. EKG shows sinus rhythm with right axis deviation and inferolateral T-wave inversions. CT of the chest was negative for PE and dissection. Urine drug screen was negative. Echocardiogram is pending. This morning he underwent Lexiscan Cardiolite stress testing without incident. He is now in nuclear medicine for his final scan. We will await these results. He is having no chest pain this morning. Blood pressure is much better controlled today. Assessment/Plan: 1. Chest pain - Difficult to determine whether this is typical or atypical. Given his mental state, he would not be the best candidate for PCI since it would require him to be compliant with DAPT. He underwent nuclear stress testing this morning. We will await these results. 2. Hypertension - Suspect uncontrolled. His home medications have been resumed. We will continue to monitor and adjust accordingly. 3. COPD - O2 PRN. Breathing treatments PRN. 4. Seizure disorder - Dilantin has been resumed. Unsure of any recent seizure activity. 5. Schizophrenia - Psych medications have been resumed. 6. Asthma - Continue O2 PRN. 7. Nicotine addiction - Spent greater than 5 minutes discussing the need for total tobacco cessation. Unsure how much patient smokes or for how long. Will need re-education. Exam (Progress Note) - Constitutional Vitals: Period Temp Pulse Resp BP Sys/Celaya Pulse Ox Last 24 Hr 97.1 F-99.1 F 93-129 16-20 120-212/65-131 90-99 Exam: General appearance: Overweight, no acute distress. - Head Head exam: Present: normal inspection, normocephalic, atraumatic. Absent: hematoma, laceration - Eye Eye exam: Present: EOMI. Absent: nystagmus, periorbital swelling, laceration to eyelids Pupils: Present: PERRL. Absent: constricted, dilated, fixed, irregular, unequal - ENT ENT exam: Present: normal exam, normal external ear exam - Neck Neck exam: Present: normal inspection. Absent: lymphadenopathy, meningismus, tenderness, thyromegaly - Respiratory Respiratory exam: Present: clear to auscultation bilaterally. Absent: accessory muscle use, chest wall tenderness - Cardiovascular Cardiovascular exam: Present: regular rate and rhythm, tachycardia. Absent: carotid bruit, JVD, rubs - GI/Abdominal GI/Abdominal exam: Present: normal bowel sounds, soft. Absent: distended, firm , guarding, hernia, mass, tenderness, rebound. - Extremities Exam Extremities exam: Present: normal inspection, normal capillary refill. Upper extremity pulses 2+. Lower extremity pulses 2+. Absent: calf tenderness, edema -Musculoskeletal Exam Musculoskeletal: Present: No Fluid Collection, No Pain, Normal Range of Motion - Back Exam Back exam: Present: normal inspection. Absent: muscle spasm, vertebral tenderness - Neurological Exam Neurological exam: Present: alert, confused, grossly intact without resting or essential tremor - Psychiatric Psychiatric exam: Present: flat affect - Skin Skin exam: Present: normal color, warm, dry, intact. Absent: cyanosis, diaphoretic, rash, urticaria Result/EKG - Labs CBC & BMP: 03/04/17 02:52 03/04/17 02:52 Lab Results: I have reviewed the past 24 hour labs Labs: Laboratory Results - last 24 hr 03/03/17 03/03/17 03/03/17 09:16 09:16 09:16 WBC 14.6 H RBC 4.87 Hgb 15.6 Hct 44.4 MCV 91.2 MCH 32 MCHC 35.1 RDW 14.4 Plt Count 298 MPV 11.3 Neut % (Auto) 69.6 Lymph % (Auto) 19.0 L [place] % (Auto) 10.3 Eos % (Auto) 0.3 Baso % (Auto) 0.5 Neut # (Auto) 10.2 H Lymph # (Auto) 2.8 [place] # (Auto) 1.5 H Eos # (Auto) 0.0 Baso # (Auto) 0.1 Immature Gran % 0.3 Nucleated RBC % 0.0 Immature Gran # 0.05 Nucleated RBCs # 0.00 INR 1.0 PT Patient/Control Mix 11.0 D-Dimer, Quantitative 1.9 Sodium Potassium Chloride Carbon Dioxide Anion Gap BUN Creatinine GFR Calculation BUN/Creatinine Ratio Glucose Calculated Osmolality Calcium Magnesium Total Bilirubin AST ALT Alkaline Phosphatase Total Creatine Kinase CK-MB (CK-2) CK and CKMB Interp Troponin I B-Natriuretic Peptide 59 Total Protein Albumin Globulin Albumin/Globulin Ratio Triglycerides Cholesterol LDL Cholesterol VLDL Cholesterol HDL Cholesterol Heart Disease Risk Ratio Lipase Urine Color Urine Appearance Urine pH Ur Specific [place] Urine Protein Urine Glucose (UA) Urine Ketones Urine Blood Urine Nitrate Urine Bilirubin Urine Urobilinogen Urine Leukocytes Urine RBC Hyaline Casts Urine Mucus Ur Culture Indicated? Urine Opiates Screen Ur Barbiturates Screen Phenytoin Ur Phencyclidine Scrn U Amphetamine/Methamph U Benzodiazepines Scrn U Cocaine Metab Screen U Cannabinoids Screen 03/03/17 03/03/17 03/03/17 10:23 10:23 10:23 WBC RBC Hgb Hct MCV MCH MCHC RDW Plt Count MPV Neut % (Auto) Lymph % (Auto) [place] % (Auto) Eos % (Auto) Baso % (Auto) Neut # (Auto) Lymph # (Auto) [place] # (Auto) Eos # (Auto) Baso # (Auto) Immature Gran % Nucleated RBC % Immature Gran # Nucleated RBCs # INR PT Patient/Control Mix D-Dimer, Quantitative Sodium 138 Potassium 3.2 L Chloride 98 Carbon Dioxide 31 Anion Gap 12.2 BUN 12 Creatinine 1.40 H GFR Calculation 86 BUN/Creatinine Ratio 8.00 Glucose 105 Calculated Osmolality 274.7 Calcium 10.2 H Magnesium 2.4 Total Bilirubin 0.70 AST 34 ALT 26 Alkaline Phosphatase 120 H Total Creatine Kinase CK-MB (CK-2) CK and CKMB Interp Troponin I 0.456 H B-Natriuretic Peptide Total Protein 8.3 Albumin 4.4 Globulin 3.9 H Albumin/Globulin Ratio 1.1 Triglycerides Cholesterol LDL Cholesterol VLDL Cholesterol HDL Cholesterol Heart Disease Risk Ratio Lipase 112.0 Urine Color Yellow Urine Appearance Slightly hazy Urine pH 5.0 Ur Specific [place] 1.011 Urine Protein 100 Urine Glucose (UA) Negative Urine Ketones 5 Urine Blood Moderate Urine Nitrate Negative Urine Bilirubin Negative Urine Urobilinogen < 2.0 H Urine Leukocytes Negative Urine RBC <1 Hyaline Casts 2 Urine Mucus Occasional Ur Culture Indicated? Not indicated Urine Opiates Screen Negative Ur Barbiturates Screen Negative Phenytoin Ur Phencyclidine Scrn Negative U Amphetamine/Methamph Negative U Benzodiazepines Scrn Negative U Cocaine Metab Screen Negative U Cannabinoids Screen Negative 03/03/17 03/03/17 03/03/17 10:23 10:23 14:26 WBC RBC Hgb Hct MCV MCH MCHC RDW Plt Count MPV Neut % (Auto) Lymph % (Auto) [place] % (Auto) Eos % (Auto) Baso % (Auto) Neut # (Auto) Lymph # (Auto) [place] # (Auto) Eos # (Auto) Baso # (Auto) Immature Gran % Nucleated RBC % Immature Gran # Nucleated RBCs # INR PT Patient/Control Mix D-Dimer, Quantitative Sodium Potassium Chloride Carbon Dioxide Anion Gap BUN Creatinine GFR Calculation BUN/Creatinine Ratio Glucose Calculated Osmolality Calcium Magnesium Total Bilirubin AST ALT Alkaline Phosphatase Total Creatine Kinase 1065 H CK-MB (CK-2) 5.6 H CK and CKMB Interp 0.5 Troponin I 0.446 H B-Natriuretic Peptide Total Protein Albumin Globulin Albumin/Globulin Ratio Triglycerides 99 Cholesterol 174 LDL Cholesterol 106.0 VLDL Cholesterol 19.8 HDL Cholesterol 54 Heart Disease Risk Ratio 3.22 Lipase Urine Color Urine Appearance Urine pH Ur Specific [place] Urine Protein Urine Glucose (UA) Urine Ketones Urine Blood Urine Nitrate Urine Bilirubin Urine Urobilinogen Urine Leukocytes Urine RBC Hyaline Casts Urine Mucus Ur Culture Indicated? Urine Opiates Screen Ur Barbiturates Screen Phenytoin 2.9 L Ur Phencyclidine Scrn U Amphetamine/Methamph U Benzodiazepines Scrn U Cocaine Metab Screen U Cannabinoids Screen 03/03/17 03/04/17 03/04/17 18:26 02:52 02:52 WBC 12.1 H RBC 4.45 Hgb 14.3 Hct 41.1 L MCV 92.4 MCH 32 MCHC 34.8 RDW 14.5 Plt Count 225 D MPV 10.6 Neut % (Auto) 66.8 Lymph % (Auto) 22.3 [place] % (Auto) 8.4 Eos % (Auto) 1.7 Baso % (Auto) 0.6 Neut # (Auto) 8.1 H Lymph # (Auto) 2.7 [place] # (Auto) 1.0 H Eos # (Auto) 0.2 Baso # (Auto) 0.1 Immature Gran % 0.2 Nucleated RBC % 0.0 Immature Gran # 0.03 Nucleated RBCs # 0.00 INR PT Patient/Control Mix D-Dimer, Quantitative Sodium 137 Potassium 3.4 L Chloride 98 Carbon Dioxide 32 Anion Gap 10.4 BUN 12 Creatinine 1.00 GFR Calculation 120 BUN/Creatinine Ratio 12.00 Glucose 129 H Calculated Osmolality 274.8 Calcium 9.2 Magnesium 2.5 H Total Bilirubin 0.50 AST 30 ALT 20 Alkaline Phosphatase 104 Total Creatine Kinase 940 H CK-MB (CK-2) 5.0 H CK and CKMB Interp Troponin I 0.410 H B-Natriuretic Peptide Total Protein 6.9 Albumin 3.5 Globulin 3.4 Albumin/Globulin Ratio 1.0 L Triglycerides Cholesterol LDL Cholesterol VLDL Cholesterol HDL Cholesterol Heart Disease Risk Ratio Lipase Urine Color Urine Appearance Urine pH Ur Specific [place] Urine Protein Urine Glucose (UA) Urine Ketones Urine Blood Urine Nitrate Urine Bilirubin Urine Urobilinogen Urine Leukocytes Urine RBC Hyaline Casts Urine Mucus Ur Culture Indicated? Urine Opiates Screen Ur Barbiturates Screen Phenytoin Ur Phencyclidine Scrn U Amphetamine/Methamph U Benzodiazepines Scrn U Cocaine Metab Screen U Cannabinoids Screen 03/04/17 02:52 WBC RBC Hgb Hct MCV MCH MCHC RDW Plt Count MPV Neut % (Auto) Lymph % (Auto) [place] % (Auto) Eos % (Auto) Baso % (Auto) Neut # (Auto) Lymph # (Auto) [place] # (Auto) Eos # (Auto) Baso # (Auto) Immature Gran % Nucleated RBC % Immature Gran # Nucleated RBCs # INR PT Patient/Control Mix D-Dimer, Quantitative Sodium Potassium Chloride Carbon Dioxide Anion Gap BUN Creatinine GFR Calculation BUN/Creatinine Ratio Glucose Calculated Osmolality Calcium Magnesium Total Bilirubin AST ALT Alkaline Phosphatase Total Creatine Kinase 695 H D CK-MB (CK-2) 3.4 CK and CKMB Interp Troponin I 0.189 H D B-Natriuretic Peptide Total Protein Albumin Globulin Albumin/Globulin Ratio Triglycerides Cholesterol LDL Cholesterol VLDL Cholesterol HDL Cholesterol Heart Disease Risk Ratio Lipase Urine Color Urine Appearance Urine pH Ur Specific [place] Urine Protein Urine Glucose (UA) Urine Ketones Urine Blood Urine Nitrate Urine Bilirubin Urine Urobilinogen Urine Leukocytes Urine RBC Hyaline Casts Urine Mucus Ur Culture Indicated? Urine Opiates Screen Ur Barbiturates Screen Phenytoin Ur Phencyclidine Scrn U Amphetamine/Methamph U Benzodiazepines Scrn U Cocaine Metab Screen U Cannabinoids Screen - EKG EKG results: interpreted by me, sinus rhythm <Mikey Odell - Last Filed: 03/04/17 12:15> Cardiology - PN: Subj Interval history: Cardiology addendum. Blood pressure 136/80 in the right arm by me. Telemetry has been benign. Normal adenosine cardiac stress test. Ejection fraction 63%. This is a low risk scan. Noncardiac chest pain. Home per Dr. Masden Exam (Progress Note) - Constitutional Vitals: Period Temp Pulse Resp BP Sys/Celaya Pulse Ox Last 24 Hr 97.1 F-99.1 F 96-129 16-20 120-148/65-99 90-99 Result/EKG - Labs CBC & BMP: 03/04/17 02:52 03/04/17 02:52 Labs: Laboratory Results - last 24 hr 03/03/17 03/03/17 03/03/17 10:23 10:23 14:26 WBC RBC Hgb Hct MCV MCH MCHC RDW Plt Count MPV Neut % (Auto) Lymph % (Auto) [place] % (Auto) Eos % (Auto) Baso % (Auto) Neut # (Auto) Lymph # (Auto) [place] # (Auto) Eos # (Auto) Baso # (Auto) Immature Gran % Nucleated RBC % Immature Gran # Nucleated RBCs # Sodium Potassium Chloride Carbon Dioxide Anion Gap BUN Creatinine GFR Calculation BUN/Creatinine Ratio Glucose Calculated Osmolality Calcium Magnesium Total Bilirubin AST ALT Alkaline Phosphatase Total Creatine Kinase 1065 H CK-MB (CK-2) 5.6 H CK and CKMB Interp 0.5 Troponin I 0.446 H Total Protein Albumin Globulin Albumin/Globulin Ratio Triglycerides 99 Cholesterol 174 LDL Cholesterol 106.0 VLDL Cholesterol 19.8 HDL Cholesterol 54 Heart Disease Risk Ratio 3.22 Phenytoin 2.9 L 03/03/17 03/04/17 03/04/17 18:26 02:52 02:52 WBC 12.1 H RBC 4.45 Hgb 14.3 Hct 41.1 L MCV 92.4 MCH 32 MCHC 34.8 RDW 14.5 Plt Count 225 D MPV 10.6 Neut % (Auto) 66.8 Lymph % (Auto) 22.3 [place] % (Auto) 8.4 Eos % (Auto) 1.7 Baso % (Auto) 0.6 Neut # (Auto) 8.1 H Lymph # (Auto) 2.7 [place] # (Auto) 1.0 H Eos # (Auto) 0.2 Baso # (Auto) 0.1 Immature Gran % 0.2 Nucleated RBC % 0.0 Immature Gran # 0.03 Nucleated RBCs # 0.00 Sodium 137 Potassium 3.4 L Chloride 98 Carbon Dioxide 32 Anion Gap 10.4 BUN 12 Creatinine 1.00 GFR Calculation 120 BUN/Creatinine Ratio 12.00 Glucose 129 H Calculated Osmolality 274.8 Calcium 9.2 Magnesium 2.5 H Total Bilirubin 0.50 AST 30 ALT 20 Alkaline Phosphatase 104 Total Creatine Kinase 940 H CK-MB (CK-2) 5.0 H CK and CKMB Interp Troponin I 0.410 H Total Protein 6.9 Albumin 3.5 Globulin 3.4 Albumin/Globulin Ratio 1.0 L Triglycerides Cholesterol LDL Cholesterol VLDL Cholesterol HDL Cholesterol Heart Disease Risk Ratio Phenytoin 03/04/17 02:52 WBC RBC Hgb Hct MCV MCH MCHC RDW Plt Count MPV Neut % (Auto) Lymph % (Auto) [place] % (Auto) Eos % (Auto) Baso % (Auto) Neut # (Auto) Lymph # (Auto) [place] # (Auto) Eos # (Auto) Baso # (Auto) Immature Gran % Nucleated RBC % Immature Gran # Nucleated RBCs # Sodium Potassium Chloride Carbon Dioxide Anion Gap BUN Creatinine GFR Calculation BUN/Creatinine Ratio Glucose Calculated Osmolality Calcium Magnesium Total Bilirubin AST ALT Alkaline Phosphatase Total Creatine Kinase 695 H D CK-MB (CK-2) 3.4 CK and CKMB Interp Troponin I 0.189 H D Total Protein Albumin Globulin Albumin/Globulin Ratio Triglycerides Cholesterol LDL Cholesterol VLDL Cholesterol HDL Cholesterol Heart Disease Risk Ratio Phenytoin
[2017-03-04] MEDS: PHENYTOIN ER 100 MG CAPSULE PO SCH ×3 (09:54→21:43)
[2017-03-04] MEDS: LOSARTAN 50 MG TABLET PO SCH (09:54)
[2017-03-04] MEDS: QUEtiapine 100 MG TABLET PO SCH ×2 (09:54→21:43)
[2017-03-04] MEDS: ASPIRIN 325 MG TABLET PO SCH (09:54)
[2017-03-04] MEDS ORDERED: REGADENOSON 0.4 MG/5 ML SYRINGE IV ONE (11:20)
[2017-03-04] MEDS ORDERED: POTASSIUM CHLORIDE 20 MEQ TABLET PO ONE (12:32)
--- NOTE | 2017-03-04 13:31 | Discharge Summary ---
Addendum entered and electronically signed by Maurice Huston CNP 03/06/17 08 :41: The patient was originally scheduled for discharge on March 04, 2017. The patient subsequently remained hospitalized 2 additional days pending inpatient psychiatric placement. The patient's condition has remained stable. He has not experienced any further episodes of chest pain or discomfort. His vital signs have been stable. The patient has been afebrile. Today, we feel that he is indeed appropriate for discharge to [place] [id number] for inpatient psychiatric services. Original Note: Hospital Course - Hospital Course Hospital Course: Mr. Rashid is a 56-year-old male admitted by the hospitalist service on 2016 from the ED for evaluation of chest pain. Patient has medical history of hypertension, nicotine addiction, asthma, COPD, and schizophrenia. Patient was found sitting in his car however he does have a house and reports he slept in his car because somebody was trying to kill him. He reported auditory hallucinations but did not have suicidal ideation at the time. Patient apparently has multiple home medicines that he had all of a sudden quit taking. At the time of admission he was in hypertensive urgency complaining of chest pain and shortness of breath. Patient did have elevated CPK along with troponins and hypokalemia. Cardiology was consulted and he underwent a stress test this morning that was negative. Patient's home medicines have all been restarted and he seems to be doing well today. He has no complaints of chest pain or shortness of breath. His CPK and troponins are trending down. His hypokalemia is resolving. His heart rate and blood pressures are doing well on his home regimen. [facility] has evaluated the patient and have agreed to take him. Patient will need to follow-up with his family physician in 2 weeks for his refills and he will need to follow-up with Dr. Odell advisory application developer in approximately 1 month. Patient's case was discussed with Dr. Madsen the hospitalist, cardiology, case management, alliance, patient and nursing. Care coordination, chart review, and completed discharge paperwork took approximately 41 minutes. Patient seen and examined. He is hemodynamically and clinically stable. He is safe for discharge. There are no changes in his medications. Active Issues: 1. Atypical chest pain; stress test is normal; he will follow up with Dr. Odell in one month. 2. HTN: losartan and adalat increased today; he will need follow up of his HTN by his PCM 3. Hypokalemia: today's K is 3.2; will discharge him on Kcl 10meq x 7 days; f/u potassium level with PCM 4. MALA: resolved 5. h/o schizophrenia: will discharge on psychotrophic medications - Time spent with patient Time with patient DS: Greater than 30 minutes Diagnosis - Discharge Diagnosis (1) Asthma Status: Chronic (2) Hyperlipidemia Status: Chronic (3) Schizophrenia Status: Chronic (4) Seizure disorder Status: Chronic (5) Chest pain Status: Resolved (6) Hypertensive urgency Status: Resolved (7) Elevated troponin Status: Resolved (8) COPD (chronic obstructive pulmonary disease) Status: Chronic (9) Nicotine addiction Status: Chronic Specialty Discharge - Follow Up or Referrals Follow up with: eloisa,pcp [Other] - 2 Weeks Mikey Odell MD [Physician] - 1 Month Discharge Plan - Discharge Data Disposition: Disch/Xfer to Psych Hos Condition at Discharge: Stable Discharge Diet: heart healthy Activity: resume usual activities as tolerated Hygiene: may shower Driving: not until seen by doctor Contact your physician if you experience:: Shortness of breath - Discharge Medications New Aspirin Tab 325 mg PO DAILY tablet Losartan [Cozaar] 50 mg PO DAILY tablet NIFEdipine XL TAB [Procardia Xl] 60 mg PO BEDTIME tablet QUEtiapine [SEROquel] 300 mg PO BID tablet Atorvastatin [Lipitor] 40 mg PO BEDTIME tablet Phenytoin ER Cap [Dilantin Cap] 100 mg PO TID capsule - Follow Up or Referral Follow Up: Mikye Odell MD [Physician] - 1 Month your,pcp [Other] - 2 Weeks - Forms/Instructions Instructions: Angina (DC), Chest Pain (DC) Exam - Constitutional Vitals: Period Temp Pulse Resp BP Sys/Celaya Pulse Ox Last 24 Hr 97.6 F-98.4 F 75-94 16-20 120-160/65-100 96-100 Exam: 56-year-old male, no acute distress, alert but will not answer questions Chest clear CV regular rate and rhythm Abdomen soft and nontender Extremities no edema Discharge Results Procedures and tests throughout hospitalization: Pending Orders 03/07/17 04:00 BMP w/ Mg [Basic Metabolic Panel w/Mg] IN AM Comp Blood Count Auto Diff IN AM Labs on day of discharge: Labs from last 24 hours 03/06/17 03/06/17 03:10 03:10 WBC 7.7 RBC 4.00 Hgb 12.6 L Hct 36.5 L MCV 91.3 MCH 32 MCHC 34.5 RDW 13.7 Plt Count 215 MPV 11.8 Neut % (Auto) 55.6 Lymph % (Auto) 31.2 [place] % (Auto) 7.9 Eos % (Auto) 4.1 Baso % (Auto) 0.9 H Neut # (Auto) 4.3 Lymph # (Auto) 2.4 [place] # (Auto) 0.6 Eos # (Auto) 0.3 Baso # (Auto) 0.1 Immature Gran % 0.3 Nucleated RBC % 0.0 Immature Gran # 0.02 Nucleated RBCs # 0.00 Sodium 140 Potassium 3.2 L Chloride 100 Carbon Dioxide 34 H Anion Gap 9.2 BUN 15 Creatinine 1.00 GFR Calculation 119 BUN/Creatinine Ratio 15.00 Glucose 129 H Calculated Osmolality 281.4 Calcium 9.5 Magnesium 2.4 DS: Provider Date of admission: 03/03/17 12:28 Primary care physician: . No PCP Attending physician on admission: Patti Madsen MD Consults: 03/03/17 12:32 Consult to Physician [CONS] Routine Comment: Consulting Provider: Cardiology - [facility] Consult to Specialist Group: Cardiology Person Notified: CINTHIA Date Notified: 03/03/17 Time Notified: 14:10 Discharging clinician: MARIELOS Glasgow
--- NOTE | 2017-03-04 14:49 | Nuclear Medicine Report ---
DATE: 03/04/2017 PROCEDURE: LEXISCAN CARDIOLITE GATED SPECT. INITIAL IMPRESSION: 1. A 56-YEAR-OLD WITH ATYPICAL CHEST PAIN. 2. HYPERTENSION. 3. ABNORMAL EKG. 4. SCHIZOPHRENIA. FINAL IMPRESSION: NORMAL LEXISCAN CARDIOLITE GATED SPECT. I: DESCRIPTION OF PROCEDURE: The patient received 10.0 mCi of Technetium-99m Cardiolite IV and rest imaging was obtained in the routine manner 20 minutes later. The patient the received 0.4 mg IV Mejia iscan followed by 30.0 mCi of Technetium-99m Cardiolite IV and pharmacologic stress image was obtaine d in a routine manner 20 minutes later. Serial electrocardiograms were performed. The initial blood pressure was 129/79 and was 120/60 immediate post Lexiscan. The peak heart rate was 121. II: RESULTS: The patient developed nausea, but no chest pain during Lexiscan infusion. The resting EKG demonstrates normal sinus rhythm with late transition and inferolateral T-wave inversions. With pharmacologic stress, no diagnostic EKG changes occurred. No arrhythmias. The left ventricular cavity is small. Tomographic imaging demonstrates homogeneous uptake of radiois otope in all segments. There is no evidence for ischemia or scar. Gated SPECT imaging demonstrates normal wall motion and thickening in all segments. The calculated ejection fraction is 63%. III. FINAL IMPRESSION: 1. CLINICALLY AND ELECTROCARDIOGRAPHICALLY NEGATIVE. 2. SCINTIGRAPHICALLY NORMAL PERFUSION STUDY. IV. DISPOSITION: The patient should be reassured regarding the lack of any evidence for significant coronary artery disease at this time. He had no chest pain or diagnostic EKG changes and tomographi c imaging is normal. In addition, ventricular function is well preserved with ejection fraction of 6 4%. This is a low-risk scan. Continued medical therapy and risk factor modification recommended. Procedure performed and interpreted at [facility] Department of Radiology.
--- NOTE | 2017-03-04 16:46 | Hospitalist Progress Note ---
Assessment and Plan (1) Atypical chest pain Status: Acute Assessment and plan: ruled out fo rMi and had a normal cardiolite stress test. OK to go to [place]. BP controlled. MALA resolved. Low potassium replaced. Eating well. Pleasant but not oriented, paranoid. Await [place] eval. Current Visit: Yes (2) Hyperlipidemia Status: Chronic Current Visit: No (3) Schizophrenia Status: Chronic Current Visit: Yes (4) Seizure disorder Status: Chronic Current Visit: No (5) Renal insufficiency Status: Acute Current Visit: Yes Hospitalist: Subjective Interval history: Mr Lezama had a normal stress test, no more chest pain or any other complaints and is medically stable to go to [facility]. They were consulted this morning but have not come to reassess him. Exam - Constitutional Vitals: Period Temp Pulse Resp BP Sys/Celaya Pulse Ox Last 24 Hr 97.1 F-99.1 F 96-129 16-20 120-141/65-78 90-98 General appearance: normal weight, no acute distress - Respiratory Respiratory exam: Present: clear to auscultation bilaterally - Cardiovascular Cardiovascular exam: Present: regular rate and rhythm - GI/Abdominal GI/Abdominal exam: Present: normal bowel sounds, soft. Absent: tenderness - Extremities Exam Extremities exam: Absent: edema Results - Labs CBC & BMP: 03/04/17 02:52 03/04/17 02:52 Specialty Discharge - Follow Up or Referrals Follow up with: your,pcp [Other] - 2 Weeks Mikey Odell MD [Physician] - 1 Month
[2017-03-04] MEDS: ATORVASTATIN 40 MG TABLET PO SCH (21:43)
[2017-03-05] MEDS: SODIUM CHLORIDE 0.45% 1,000 ML IV SCH ×2 (05:48→17:13)
[2017-03-05 06:02] LABS: Basophils # 0.1 10*3/uL (0.0-0.2); Basophils % 1.2 % (0.0-0.8); Eosinophils # 0.4 10*3/uL (0.0-0.87); Eosinophils % 4.1 % (0.00-10.9); Hematocrit 39.8 VOL% (42.0-52.0); Hemoglobin 13.8 GM/DL (14.0-18.0); Immature Granulocytes % 0.2 %; Immature Granulocytes Absolute 0.02 #; Lymphocytes # 2.9 10*3/uL (1.4-4.0); Lymphocytes % 33.1 % (21.2-54.2); Mean Corpuscular HGB Conc 34.7 GM/DL (32-36); Mean Corpuscular Hemoglobin 32 PG (27-34); Mean Corpuscular Volume 92.3 FL (87-102); Mean Platelet Volume 11.1 FL (9.6-12.0); Monocytes # 0.8 10*3/uL (0.11-0.8); NRBC # 0.02 10*3/uL; Neutrophils # 4.5 10*3/uL (1.4-7.4); Neutrophils % 52.4 % (38.7-73.9); Platelet Count 216 T/CUMM (130-400); Red Blood Count 4.31 MC/CUMM (3.8-5.5); White Blood Count 8.6 T/CUMM (4-12)
[2017-03-05 06:37] LABS: Calcium 9.1 MG/DL (8.5-10.1); Magnesium 2.6 MG/DL (1.8-2.4); Osmolality,Calculated 281.3 MOS/KG (273-304); Potassium 3.6 MMOL/L (3.5-5.1)
[2017-03-05] MEDS: LOSARTAN 50 MG TABLET PO SCH (08:13)
[2017-03-05] MEDS: ASPIRIN 325 MG TABLET PO SCH (08:13)
[2017-03-05] MEDS: QUEtiapine 100 MG TABLET PO SCH ×2 (08:13→21:31)
[2017-03-05] MEDS: PHENYTOIN ER 100 MG CAPSULE PO SCH ×3 (08:13→21:32)
--- NOTE | 2017-03-05 11:47 | Cardiology Progress Note ---
Cardiology - PN: Subj Interval history: Cardiology note Telemetry shows steady sinus rhythm Blood pressure 130/72 Normal Lexiscan Cardiolite stress test. EF 63%. Regular rhythm no murmur or gallop. Clear lungs. Abdomen benign. No leg edema. Plan Agree with discharge. BP meds have been restarted. Exam (Progress Note) - Constitutional Vitals: Period Temp Pulse Resp BP Sys/Celaya Pulse Ox Last 24 Hr 97.8 F-98.6 F 85-101 16-20 112-141/67-79 93-97 Result/EKG - Labs CBC & BMP: 03/05/17 05:15 03/05/17 05:15 Labs: Laboratory Results - last 24 hr 03/05/17 03/05/17 05:15 05:15 WBC 8.6 RBC 4.31 Hgb 13.8 L Hct 39.8 L MCV 92.3 MCH 32 MCHC 34.7 RDW 14.0 Plt Count 216 MPV 11.1 Neut % (Auto) 52.4 Lymph % (Auto) 33.1 [place] % (Auto) 9.0 Eos % (Auto) 4.1 Baso % (Auto) 1.2 H Neut # (Auto) 4.5 Lymph # (Auto) 2.9 [place] # (Auto) 0.8 Eos # (Auto) 0.4 Baso # (Auto) 0.1 Immature Gran % 0.2 Nucleated RBC % 0.2 Immature Gran # 0.02 Nucleated RBCs # 0.02 Sodium 141 Potassium 3.6 Chloride 102 Carbon Dioxide 31 Anion Gap 11.6 BUN 15 Creatinine 1.00 GFR Calculation 119 BUN/Creatinine Ratio 15.00 Glucose 91 Calculated Osmolality 281.3 Calcium 9.1 Magnesium 2.6 H Specialty Discharge - Follow Up or Referrals Follow up with: your,pcp [Other] - 2 Weeks Mikey Odell MD [Physician] - 1 Month
--- NOTE | 2017-03-05 13:46 | Hospitalist Progress Note ---
Assessment and Plan (1) Atypical chest pain Status: Acute Assessment and plan: ruled out for [place] and had a normal cardiolite stress test. Medically stable- to transfer to [place] [address] tomorrow. BP controlled. MALA resolved. Low potassium replaced. Eating well. Meds restarted that he used to take. Current Visit: Yes (2) Hyperlipidemia Status: Chronic Current Visit: No (3) Schizophrenia Status: Chronic Current Visit: Yes (4) Seizure disorder Status: Chronic Current Visit: No (5) Renal insufficiency Status: Acute Current Visit: Yes Hospitalist: Subjective Interval history: Mr Lezama is feeling ok today. He remains disoriented but cooperative. [facility] wouldn't evaluate him because he said he didn't want to go there, before relaizing that he is not competent to refuse. Then the psychiatrist there said he would not take him on a 24hour hold because the patient is from [place] (actually he just thinks he's in [place], he is actually lives in [place]). His sister from [place] is not available. He has been living on his own but is not safe to discharge home with his current level of disorientation and paranoia. He has not been taking his medicines. He has been accepted to [place] [address] for tomorrow morning. Exam - Constitutional Vitals: Period Temp Pulse Resp BP Sys/Celaya Pulse Ox Last 24 Hr 97.9 F-98.6 F 85-101 16-20 112-140/65-79 93-98 General appearance: normal weight, no acute distress - Head Head exam: Present: normocephalic, atraumatic - Eye Eye exam: Present: EOMI. Absent: scleral icterus - Respiratory Respiratory exam: Present: clear to auscultation bilaterally - Cardiovascular Cardiovascular exam: Present: regular rate and rhythm - GI/Abdominal GI/Abdominal exam: Present: normal bowel sounds, soft. Absent: tenderness - Extremities Exam Extremities exam: Absent: edema - Neurological Exam Neurological exam: Present: alert. Absent: oriented X3 Results - Labs CBC & BMP: 03/05/17 05:15 03/05/17 05:15 Lab Results: I have reviewed the past 24 hour labs Specialty Discharge - Follow Up or Referrals Follow up with: your,pcp [Other] - 2 Weeks Mikey Odell MD [Physician] - 1 Month
[2017-03-05] MEDS: ATORVASTATIN 40 MG TABLET PO SCH (21:31)
[2017-03-06 04:19] LABS: Basophils # 0.1 10*3/uL (0.0-0.2); Basophils % 0.9 % (0.0-0.8); Eosinophils # 0.3 10*3/uL (0.0-0.87); Eosinophils % 4.1 % (0.00-10.9); Hematocrit 36.5 VOL% (42.0-52.0); Hemoglobin 12.6 GM/DL (14.0-18.0); Immature Granulocytes % 0.3 %; Immature Granulocytes Absolute 0.02 #; Lymphocytes # 2.4 10*3/uL (1.4-4.0); Lymphocytes % 31.2 % (21.2-54.2); Mean Corpuscular HGB Conc 34.5 GM/DL (32-36); Mean Corpuscular Hemoglobin 32 PG (27-34); Mean Corpuscular Volume 91.3 FL (87-102); Mean Platelet Volume 11.8 FL (9.6-12.0); Monocytes # 0.6 10*3/uL (0.11-0.8); Monocytes % 7.9 % (1.7-12.7); Neutrophils # 4.3 10*3/uL (1.4-7.4); Neutrophils % 55.6 % (38.7-73.9); Platelet Count 215 T/CUMM (130-400); Red Cell Distribution Width 13.7 % (9.3-17.3); White Blood Count 7.7 T/CUMM (4-12)
[2017-03-06 04:57] LABS: Calcium 9.5 MG/DL (8.5-10.1); Magnesium 2.4 MG/DL (1.8-2.4); Osmolality,Calculated 281.4 MOS/KG (273-304); Potassium 3.2 MMOL/L (3.5-5.1)
[2017-03-06] MEDS: SODIUM CHLORIDE 0.45% 1,000 ML IV SCH (06:28)
[2017-03-06 08:22] VITALS: BP 158/93
[2017-03-06] MEDS ORDERED: POTASSIUM CHLORIDE 20 MEQ TABLET PO ONE ×2 (08:44→10:43)
[2017-03-06] MEDS: PHENYTOIN ER 100 MG CAPSULE PO SCH (09:42)
[2017-03-06] MEDS: LOSARTAN 50 MG TABLET PO SCH (09:42)
[2017-03-06] MEDS: ASPIRIN 325 MG TABLET PO SCH (09:42)
[2017-03-06] MEDS: QUEtiapine 100 MG TABLET PO SCH (09:42)
--- NOTE | 2017-03-06 10:43 | Cardiology Progress Note ---
Cardiology - PN: Subj Interval history: Cardiology note 56-year-old man with schizophrenia and chronic hypertension and atypical chest pain. Normal Lexiscan cardiac stress test. EF 60%. Telemetry has been benign. BP running a little high. 150/92 in the right arm by me. Regular rhythm no murmur or gallop. Clear lungs. Abdomen benign. No leg edema. Lab data today White count 7.7 hemoglobin 12.6 hematocrit 36.5 Sodium 140 potassium 3.2 chloride 100 CO2 34 BUN 15 creatinine 1.0 Magnesium 2.4 glucose 129 Plan 40 mEq KCl Increase losartan 100 mg daily Continue nifedipine 60 mg daily Awaiting transfer Exam (Progress Note) - Constitutional Vitals: Period Temp Pulse Resp BP Sys/Celaya Pulse Ox Last 24 Hr 97.6 F-98.4 F 75-94 16-20 120-160/65-100 96-100 Result/EKG - Labs CBC & BMP: 03/06/17 03:10 03/06/17 03:10 Labs: Laboratory Results - last 24 hr 03/06/17 03/06/17 03:10 03:10 WBC 7.7 RBC 4.00 Hgb 12.6 L Hct 36.5 L MCV 91.3 MCH 32 MCHC 34.5 RDW 13.7 Plt Count 215 MPV 11.8 Neut % (Auto) 55.6 Lymph % (Auto) 31.2 [place] % (Auto) 7.9 Eos % (Auto) 4.1 Baso % (Auto) 0.9 H Neut # (Auto) 4.3 Lymph # (Auto) 2.4 [place] # (Auto) 0.6 Eos # (Auto) 0.3 Baso # (Auto) 0.1 Immature Gran % 0.3 Nucleated RBC % 0.0 Immature Gran # 0.02 Nucleated RBCs # 0.00 Sodium 140 Potassium 3.2 L Chloride 100 Carbon Dioxide 34 H Anion Gap 9.2 BUN 15 Creatinine 1.00 GFR Calculation 119 BUN/Creatinine Ratio 15.00 Glucose 129 H Calculated Osmolality 281.4 Calcium 9.5 Magnesium 2.4 Specialty Discharge - Follow Up or Referrals Follow up with: your,pcp [Other] - 2 Weeks Mikey Odell MD [Physician] - 1 Month
[2017-03-06] MEDS ORDERED: LOSARTAN 50 MG TABLET PO SCH (11:00)
--- NOTE | 2017-03-09 13:23 | Physician Query Form ---
CLICK EDIT DOCUMENT TO SELECT QUERY ANSWER --> OK --> SIGN Iris Palacios RN, CCDS Certified Clinical Records Assistant W) [phone] (f) [phone] [email or web address]: Make your selection(s) from the choices in EACH section by typing an "x" and enter comments in the comment section. Please use your independent medical judgment in providing your response. This request does not imply that any particular answer is desired or expected. CLINICAL INDICATORS: (Providers should not edit this section) Documentation includes the diagnosis of schizophrenia. The medical record indicates that the patient was admitted with chest pain, "patient's mental status, is difficult to obtain much information", "having auditory hallucinations since admission but denies suicidal ideation" AND the patient has a history of Schizophrenia. If possible, please provide further specificity of the type. (x ) Paranoid schizophrenia ( ) Catatonic schizophrenia ( ) Undifferentiated (atypical) schizophrenia ( ) Disorganized schizophrenia ( ) Residual schizophrenia ( ) Simple schizophrenia ( ) Cyclic schizophrenia ( ) Schizophrenic reaction ( ) Clinically unable to determine ( ) Other, please specify: COMMENTS: PLEASE ALSO DOCUMENT RESPONSE IN PROGRESS NOTES AND/OR DISCHARGE SUMMARY Use of terms such as suspected, likely, or probable (associated with a specific diagnosis that is being evaluated, monitored, or treated as if it exists) are acceptable and can be restated in the discharge summary if not ruled out. MTDD
== END 2017-03-06 12:08 | DRG 313 ==
LOC: EDUNIT# → EDBD → N.ED 08:50 → SUATTDRO 12:28 → N.EDINP 12:28 → N.TELEN 14:01
PROVIDERS: ADMIT Internal Medicine; ATTEND Internal Medicine